=== PATIENT | male | born 1950 | race Caucasian/White ===

== ENCOUNTER 2019-09-17 15:26 | Outpatient (CLI) | payer MEDICARE, OTHER, SELFPAY ==
--- NOTE | ~2019-09-17 | XR_ITS ---
EXAMINATION: XR lumbar spine 2-3V DATE: 09/17/2019 16:08 INDICATION: Low back and right hip pain TECHNIQUE: Anteroposterior and lateral views of the lumbar spine, and cone-down lateral view of the l umbosacral junction were obtained. COMPARISON: None. FINDINGS: Alignment of the lumbar spine is normal. There appears be a chronic nonunited fracture of the coccyx with smooth corticated margins and mild posterior displacement. Vertebral body heights are normal. Mi ld disc height loss at L1-L2. Small to moderate-sized endplate osteophytes at multiple levels. Multil evel mild lumbar facet osteoarthritis. IMPRESSION: 1. Mild lumbar spondylosis. 2. 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 Reviewed, dictated and finalized at location A. IMPRESSION: 1. Mild lumbar spondylosis. 2. 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
--- NOTE | ~2019-09-17 | XR_ITS ---
EXAMINATION: XR hip RT min 3V w AP pelvis DATE: 09/17/2019 16:09 INDICATION: Right hip pain TECHNIQUE: Anteroposterior view of the pelvis and anteroposterior, frog leg and cross-table lateral v iews of the right hip were obtained. COMPARISON: 01/23/2010 FINDINGS: Alignment is normal. No fracture or suspected avascular necrosis. Bilateral decreased anterosuperior femoral head/neck offset. Again seen are large marginal osteophytes about both acetabula. There has b een interval progression of during of the space between the osteophytes at the superolateral acetabul um and the cortex of the femoral heads now moderate to severe on the right and moderate on the left c onsistent with progressive cartilage loss at the femoral heads. The joint space between the femoral h samir and the articular surface of the bilateral acetabula remains relatively preserved. Mild lower azul mbar spondylosis. IMPRESSION: 1. Chronic marked hypertrophic changes along the margins of both the left and right acetabula which m ay be related to chronic labral degeneration. 2. Progression of narrowing of the space between the hypertrophic osteophytes and the superolateral m argin of the bilateral femoral heads consistent with progressive femoral chondromalacia. Reviewed, dictated and finalized at location A. IMPRESSION: 1. Chronic marked hypertrophic changes along the margins of both the left and r ight acetabula which may be related to chronic labral degeneration. 2. Progression of narrowing of the space between the hypertrophic osteophytes a nd the superolateral margin of the bilateral femoral heads consistent with prog ressive femoral chondromalacia.
== END 2019-09-17 15:27 | disposition home or self-care (01) ==
LOC: ANHIMG 15:33
PROVIDERS: PCP Family Medicine; Visit Provider Physician Assistant
DX: M25.559 Pain in unspecified hip (principal); M47.896 Other spondylosis, lumbar region
CPT/HCPCS: 72100; 73502

== ENCOUNTER 2020-06-13 11:45 | Outpatient (CLI) | payer MEDICARE, OTHER, SELFPAY | END 2020-06-13 11:46 | disposition home or self-care (01) | LOC: ANHCOVIDVC 11:45 | PROVIDERS: PCP Family Medicine | DX: Z23 Encounter for immunization (principal) | CPT/HCPCS: 0001A; 91300 ==

== ENCOUNTER 2020-07-04 11:44 | Outpatient (CLI) | payer MEDICARE, OTHER, SELFPAY | END 2020-07-04 11:45 | disposition home or self-care (01) | LOC: ANHCOVIDVC 11:44 | PROVIDERS: PCP Family Medicine | DX: Z23 Encounter for immunization (principal) | CPT/HCPCS: 0002A; 91300 ==

== ENCOUNTER → 2021-06-15 08:41 | Outpatient (CLI) | payer MEDICARE, SELFPAY ==
--- NOTE | ~2021-06-15 | CT_ITS ---
EXAMINATION: CT lung screening DATE: 06/15/2021 09:02 INDICATION: Personal history of nicotine dependence TECHNIQUE: Computed tomography (CT) of the chest was performed without intravenous contrast. The dose -length product was 329.70 mGy-cm. Automated exposure control and iterative reconstruction technique were employed. COMPARISON: CT dated 05/13/2018 FINDINGS: No significant pleural or pericardial effusion. No thoracic lymphadenopathy. There is ather osclerosis of the aorta and coronary arteries. Small hiatal hernia. There is a small low-density lesi on right adrenal gland, unchanged, likely benign adenoma. There is moderate-severe emphysema. Calcifi ed granuloma right upper lobe. No endobronchial lesions. There are surgical changes in the right apex . There are a few small nodules measuring 3 mm or less. There are stable fissural nodules on the righ t. No pneumothorax. There is dependent atelectasis. No focal airspace consolidation. Mild thoracic sp ondylosis. Stable right lower paratracheal lymph node, likely reactive. 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 IMPRESSION: 1. Lung-RADS category 2: Benign appearance or behavior. Continue annual screening with noncontrast lo w-dose chest CT in 12 months. Reviewed, dictated and finalized at location B. IMPRESSION: 1. Lung-RADS category 2: Benign appearance or behavior. Continue annual screeni ng with noncontrast low-dose chest CT in 12 months.
== END ==
PROVIDERS: PCP Family Medicine; Visit Provider Physician Assistant
DX: Z12.2 Encounter for screening for malignant neoplasm of respiratory organs (principal); Z87.891 Personal history of nicotine dependence
CPT/HCPCS: 71271

== ENCOUNTER → 2022-07-05 11:20 | Outpatient (CLI) | payer MEDICARE, SELFPAY ==
--- NOTE | ~2022-07-05 | CT_ITS ---
EXAMINATION: CT lung screening DATE: 07/05/2022 11:36 INDICATION: Personal history of nicotine dependence, prior smoker with 80 pack year history TECHNIQUE: Computed tomography (CT) of the chest was performed without intravenous contrast. The dose -length product (DLP) was 333.31 mGy-cm. Automated exposure control and iterative reconstruction tech [employer] were employed. COMPARISON: 06/15/2021 FINDINGS: There is moderate emphysema. A surgical staple line is noted in the right lung apex. Calcif ied pulmonary nodules and calcified right hilar lymph nodes are consistent with old granulomatous dis ease. There is a stable 2 mm nodule of the left upper lobe. No pathologically enlarged thoracic lymph nodes are identified. The heart size is normal. No pleural effusion or pneumothorax. Deformity of th e right sixth rib is consistent with old thoracotomy change. There are bridging osteophytes at multip le levels in the spine, consistent with diffuse idiopathic skeletal hyperostosis (DISH). A stable lisa noma of the right adrenal gland is again noted. IMPRESSION: 1. Lung-RADS category 2: Benign appearance or behavior. Continue annual screening with noncontrast lo w-dose chest CT in 12 months. Reviewed, dictated and finalized at location L. IMPRESSION: 1. Lung-RADS category 2: Benign appearance or behavior. Continue annual screeni ng with noncontrast low-dose chest CT in 12 months.
== END ==
PROVIDERS: PCP Physician Assistant; Visit Provider Physician Assistant
DX: Z12.2 Encounter for screening for malignant neoplasm of respiratory organs (principal); Z87.891 Personal history of nicotine dependence
CPT/HCPCS: 71271

== ENCOUNTER 2022-11-02 12:20 | Outpatient (CLI) | payer MEDICARE, SELFPAY ==
--- NOTE | 2022-11-05 10:42 | WPDPFTINT ---
PFT Procedure Performed PFT Procedure Performed Plethysmography (Lung Vol) Diffusing Cap (DLCO) Spirometry w/o Bronchodil PFT Interpretation DOS: 11/02/2022 REQUESTING: Fletcher Mullen PA-C REASON FOR TESTING: Shortness of breath PULMONARY FUNCTION TESTS Results are reliable and reproducible. Spirometry: FEV1 is 1.87 L, 60%, decreased. FVC is 3.30 L, 81%, low end of normal. FEV1 / FVC ratio is 57%, decreased, indicates airflow obstruction. No bronchodilator was given. Lung volumes: Total lung capacity 4.15 L, 61%, decreased consistent with restriction. Residual volume is 0.85 L, 36% severely decreased. RV/TLC is 21, below the lower limit of normal. Diffusion: DLCO is 14.8, 57%, moderately reduced. DLCO/VA is 3.54, 89%, normal. Flow volume loop: There is mild coving of the expiratory limb. The inspiratory limb has a nonspecific attenuation in the first portion. IMPRESSION: This study shows combined moderate restriction and moderate obstruction with a moderate diffusion impairment which corrects for alveolar volume. This may reflect overlapping conditions such as emphysema and interstitial lung disease, for example. There are no prior studies for comparison. No bronchodilator was given. Chest CT shows a surgical staple line in the right upper lobe. Loss of lung parenchyma may contribute to his restrictive impairment. Keyona Nova MD
== END 2022-11-02 12:21 | disposition home or self-care (01) ==
PROVIDERS: PCP Emergency Medicine; Visit Provider Physician Assistant
DX: R06.02 Shortness of breath (principal); R94.2 Abnormal results of pulmonary function studies
CPT/HCPCS: 94375; 94726; 94729

== ENCOUNTER 2022-11-05 08:04 | Outpatient (CLI) | payer MEDICARE, SELFPAY ==
--- NOTE | ~2022-11-05 | NM_ITS ---
EXAMINATION: NM henry stress w perfusion DATE: 11/05/2022 10:50 INDICATION: Dyspnea on exertion. TECHNIQUE: Rest images were obtained following intravenous administration of 10.2 mCi Tc99m tetrofosm in (Myoview). The patient was infused intravenously with Lexiscan (regadenoson). Then, 32.7 mCi Tc99m tetrofosmin (Myoview) was administered intravenously, and stress images were obtained. Data was gely nstructed into short axis and horizontal and vertical long axis SPECT images. Gated SPECT images were also obtained. COMPARISON: None. FINDINGS: There is a small, mild, fixed perfusion defect involving apical to mid inferior wall of lef t ventricle, consistent with infarct. No reversible component to suggest ischemia.. There is no segm ental wall motion abnormality. Left ventricular ejection fraction measures 69%. IMPRESSION: 1. 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 2. Normal left ventricular ejection fraction measuring 69%. Reviewed, dictated and finalized at location A. IMPRESSION: 1. Small area of mild infarct involving apical to mid inferior wall of left samia tricle. 2. Normal left ventricular ejection fraction measuring 69%.
--- NOTE | 2022-11-05 08:50 | EST_ITS ---
Patient Info Name: Alfonso Perez Age: 72 years : 1950 Gender: Male Ht: 70 in Wt: 285 lbs BSA: 2.58 m2 HR: 62 bpm BP: 138 / 62 mmHg Heart Rhythm: Sinus Rhythm Exam Date: 11/05/2022 9:30 AM Exam Location: [facility] Stress Patient Status: Outpatient Admit Date: 11/05/2022 Staff Ordering Physician: Fletcher Mullen PA-C Attending Provider: Fletcher Mullen PA-C Exercise Technologist: Terrie Grissom CT Exercise Physician: Andre Ramos DO Exam Type: CA stress henry w NM Study Info Indications R06.02 - Shortness of breath A regadenoson stress test was performed. Summary 1. 1. Negative lexiscan stress test for ischemic ST changes by ECG criteria. 2. 2. Stable hemodynamics throughout the test. 3. 3. Nuclear scan to follow and will be reported separately. Please correlate with it. 4. 4. Patient informed of the above results. Protocol: Lexiscan Stress ECG Details Stage: REST Duration (min): 1 min : 1 sec HR (bpm): 64 SBP (mmHg): 138 DBP (mmHg): 62 Stage: REST Duration (min): 12 min : 31 sec HR (bpm): 60 SBP (mmHg): 138 DBP (mmHg): 62 Stage: STAGE 1 Duration (min): 1 min : 0 sec HR (bpm): 72 SBP (mmHg): 140 DBP (mmHg): 79 Stage: RECOVERY Duration (min): 1 min : 0 sec HR (bpm): 73 SBP (mmHg): 140 DBP (mmHg): 79 Stage: RECOVERY Duration (min): 2 min : 0 sec HR (bpm): 72 SBP (mmHg): 140 DBP (mmHg): 79 Stage: RECOVERY Duration (min): 3 min : 0 sec HR (bpm): 70 SBP (mmHg): 142 DBP (mmHg): 76 Stage: RECOVERY Duration (min): 3 min : 15 sec HR (bpm): 67 SBP (mmHg): 142 DBP (mmHg): 76 Rest HR: 60 bpm Peak HR: 82 bpm Rest Sys BP: 138 mmHg Peak Sys BP: 142 mmHg Max Pred HR: 150 bpm % Max Pred HR: 55 % Target HR: 128 bpm Max RPP: 11,644 bpm*mmHg Termination Reason: Completed protocol Cardiac Symptoms: Shortness of breath Total Time: 1 min : 0 sec Rest Slater BP: 62 mmHg Peak Slater BP: 76 mmHg Total Dose: 0.4 mg Resting ECG Sinus rhythm. Stress ECG No ST changes. Arrhythmias None. Report Signatures
--- NOTE | 2022-11-05 08:50 | ECHO_ITS ---
Patient Info Name: Alfonso Perez Age: 72 years : 1950 Gender: Male Ht: 70 in Wt: 285 lbs BSA: 2.58 m2 HR: 57 bpm BP: 148 / 77 mmHg Technical Quality: Fair Exam Date: 11/05/2022 11:09 AM Exam Location: [facility] Patient Status: Outpatient Admit Date: 11/05/2022 Staff Ordering Physician: Fletcher Mullen PA-C Pattern Illustrator: Radha Alston RDCS Attending Provider: Fletcher Mullen PA-C Referring Physician: Sebas REID; Exam Type: CA echo dop bubble study w con Study Info Indications - SHORTNESS OF BREATH Complete two-dimentional, color flow and Doppler transthoracic echocardiogram is performed with agitated saline and with contrast to opacify the left ventricle and to improve the delineation of the left ventricle endocardial borders. Contrast/Agitated Saline Contrast/Ag. Saline: Definity Amount: 2.00 ml Administered By: Radha Alston [facility] Existing IV Access: No New IV Access: Left Site Condition: IV removed Summary 1. Left ventricular chamber dimension is mildly enlarged. 2. Left ventricular systolic function is normal, estimated at 60-65%. 3. There is mild concentric increased left ventricular wall thickness. 4. The left ventricular diastolic function is grade I diastolic dysfunction. 5. E/e' 11 is mildly elevated. 6. There is mild aortic valve sclerosis. 7. There is mild to moderate aortic valve regurgitation. 8. There is trace mitral valve regurgitation. 9. There is trace tricuspid valve regurgitation. 10. No pulmonary hypertension, estimated pulmonary arterial systolic pressure is 35 mmHg. Left Ventricle E/e' 11 is mildly elevated. Left ventricular chamber dimension is mildly enlarged. Left ventricular systolic function is normal, estimated at 60-65%. There is mild concentric increased left ventricular wall thickness. The left ventricular diastolic function is grade I diastolic dysfunction. Right Ventricle Right ventricular chamber dimension is normal. Right ventricular systolic function is normal. Left Atria Left atrial chamber dimension is normal. Right Atria Right atrial chamber dimension is normal. Atrial Septum Agitated saline injection with and without valsalva maneuver opacified right side cardiac chambers without shunt to left side cardiac chambers. Intact interatrial septum visualized by 2D and agitated saline imaging. Aortic Valve The aortic valve is trileaflet. There is mild aortic valve sclerosis. There is no aortic valve stenosis. There is mild to moderate aortic valve regurgitation. Pulmonic Valve There is no pulmonic regurgitation. Mitral Valve There is no mitral valve stenosis. There is trace mitral valve regurgitation. Tricuspid Valve There is trace tricuspid valve regurgitation. No pulmonary hypertension, estimated pulmonary arterial systolic pressure is 35 mmHg. Pericardium/Pleural There is no pericardial effusion. Inferior Vena Cava Normal inferior vena cava with >50% collapse upon inspiration consistent with normal right atrial pressure, 5 mmHg. Aorta The aortic root size at the sinus of Valsalva is normal. Left Ventricular Outflow Tract Name Value Normal LVOT 2D LVOT Diameter 2.2 cm LVOT Doppler
[2022-11-05] MEDS: PERFLUTREN LIPID MICROSPHERES 1.5 ML VIAL DILUTED TO 10 ML TOTAL VOLUME IV PUSH (11:40)
== END 2022-11-05 08:05 | disposition home or self-care (01) ==
PROVIDERS: PCP Emergency Medicine; Visit Provider Physician Assistant
DX: R06.02 Shortness of breath (principal); I34.0 Nonrheumatic mitral (valve) insufficiency; I35.1 Nonrheumatic aortic (valve) insufficiency; I36.1 Nonrheumatic tricuspid (valve) insufficiency
CPT/HCPCS: 78452; 93017; 96375; A9502; C8929; J2785; Q9957

== ENCOUNTER 2022-12-25 16:24 | Outpatient (CLI) | payer MEDICARE, SELFPAY ==
[2022-12-25 17:03] LABS: Appearance Urine Turbid (Clear); Bacteria Urine 1+ /hpf; Bilirubin Urine Negative (Negative); Blood Urine 3+ (Negative); Color Urine Yellow (Yellow); Glucose Urine UA Negative (Negative); Ketones Urine Negative (Negative); Leukocyte Esterase Ur 3+ LEU/UL (Negative); Nitrate Urine Negative (Negative); Non Pathogenic Casts 0-2; Protein Urine 2+ mg/dL (Negative); RBC Urine >100 /hpf (0-2); Specific Grav Ur 1.014 (1.001-1.035); Squamous Epithelial Cell Urine None seen /hpf (Few); Urobilinogen Urine 0.2 mg/dL (<2.0); WBC Urine >100 /hpf; pH Urine 5.5 (5.0-9.0)
[2022-12-25 17:28] LABS: Add Urine Microscopic? YES
== END 2022-12-25 16:25 | disposition home or self-care (01) ==
LOC: ANHLAB 16:25
PROVIDERS: PCP Emergency Medicine; Visit Provider Emergency Medicine
DX: N39.0 Urinary tract infection, site not specified (principal)
CPT/HCPCS: 81001; 87077; 87086; 87186

== ENCOUNTER 2022-12-27 08:42 | Outpatient (CLI) | payer MEDICARE, SELFPAY ==
--- NOTE | 2022-12-27 12:29 | WPDPFTINT ---
PFT Procedure Performed PFT Procedure Performed Spirometry with Pre/Post Bronchodilator Flow Vol Loop PFT Interpretation This is a pulmonary function test with pre and post-bronchodilator spirometry, plethysmography and diffusing capacity. The test was performed and results interpreted in accordance with the 2019 and 2005 ATS/ERS Task Force guidelines respectively using the Global Lung Function Initiative-2012 reference equations. Patient demonstrated good effort and cooperation. Reproducibility criteria were met. The quality of the pre bronchodilator spirometry maneuver was Grade A and post bronchodilator spirometry maneuver was Grade A. Findings: Spirometry: There is decreased maximal expiratory airflow at all lung volumes with concave expiratory flow tracing. The contour the inspiratory flow tracing is normal. The pre bronchodilator FVC is 3.24 L, 79% predicted. The pre bronchodilator FEV1 is 1.86 L, 60% predicted. The pre bronchodilator FEV1: FVC ratio is 58%. The post bronchodilator FVC is 3.36 L, representing a 4% increase. The post bronchodilator FEV1 is 1.98 L, representing a 6% increase. The post bronchodilator FEV1: FVC ratio is 59%. In comparison to previous spirometry performed on 11/02/2022 in which only pre bronchodilator spirometry was performed the pre bronchodilator FVC is unchanged from 3.30 L to 3.24 L. The pre bronchodilator FEV1 is unchanged from 1.87 L to 1.86 L. Impression: There is a moderate obstructive abnormality without significant improvement after inhaling a single dose of albuterol. In comparison to previous spirometry performed on 11/02 2022 there has been no significant change in the pre bronchodilator FVC or FEV1. Clinical correlation is recommended.
--- NOTE | 2022-12-27 12:31 | WPDSIXMINUTE ---
Six Minute Walk Procedure Procedure Performed Pulmonary Stress Test (6 min walk) Six Minute Walk Six Minute Walk: This is a 6 minute walk test. The test was performed and interpreted in accordance with the 2014 ERS/ATS task force guidelines. Findings: The patient's resting room air oxygen saturation measured by pulse oximetry was 95% and heart rate was 62 bpm. Patient ambulated for 274 meters and oxygen saturation remained 90 to 91%. Heart rate at the end of the study was 97 bpm. The patient did not qualify for supplemental oxygen at rest or with ambulation. There are no prior studies for comparison.
== END 2022-12-27 08:43 | disposition home or self-care (01) ==
PROVIDERS: PCP Emergency Medicine; Visit Provider Internal Medicine Pulmonary Disease
DX: R06.02 Shortness of breath (principal); J44.9 Chronic obstructive pulmonary disease, unspecified; Z87.891 Personal history of nicotine dependence; R94.2 Abnormal results of pulmonary function studies
CPT/HCPCS: 94060; 94618

== ENCOUNTER 2023-04-30 14:07 | Emergency (ER) | payer MEDICARE, SELFPAY ==
--- NOTE | 2023-04-30 14:10 | ED.MALEGU ---
HPI - Male Genitourinary General Chief complaint: Urogenital-Male Stated complaint: Uti symptoms Time Seen by Provider: 04/30/23 14:09 Source: patient Mode of arrival: ambulatory Limitations: no limitations History of Present Illness HPI Narrative: Alfonso is a 72-year-old male patient presenting to the clinic today with complaints of possible urinary tract infection. He reports he is having some burning and frequency with urination. Has had the symptoms for few days now. Has attempted to get in with his urologist but does not have an appointment for 2 weeks. States he wants to get a ?handle on this?. He denies any fever or chills. Denies any abdominal pain or flank pain. Is seen and doctor Geovani with [facility] Related Data Home Medications Medication Instructions Recorded Confirmed aspirin 81 mg chewable tablet 81 mg PO DAILY 11/08/22 04/30/23 Allergies Allergy/AdvReac Type Severity Reaction Status Date / Time alcohol AdvReac Unknown RECOVERED Verified 04/30/23 14:36 ALCOHOLIC DRUG USER, NONE FOR 31 YRS Review of Systems Review of Systems: Pertinent positives per HPI. Patient denies any fever, chills, rash, headache, visual changes, dizziness, cough, runny nose, sore throat, shortness of breath, chest pain, palpitations, nausea, vomiting, diarrhea, constipation, abdominal pain. [facility] Past Medical History Medical History Bilateral hip joint arthritis Collapsed lung COPD (chronic obstructive pulmonary disease) Hypertension Liver disease Morbid obesity Family History Family History Father Diabetes mellitus Mother Patient's mother is Social History Social History Social History: Caffeine- coffee Smoking status: Former smoker Alcohol intake: never Alcohol use details: RECOVERING ADDICT Substance use: never Lack of Transportation: No Lack of Food: Never True Current Housing: I Have Housing Concerned About Future Housing: No Difficulty Paying Gas/Electric Bills: No Difficulty Paying for Meds: No Currently Unemployed: No Education: High School Diploma/GED Difficulty w/ Childcare or Family Care: No Living arrangements: with family Occupation/Education: retired Comments At the time of my signature, I reviewed and agree with the nursing past medical, surgical, social, and family history. There is no relevant family history pertinent to the patient complaint. Exam Narrative: General: Well-developed, obese, in no apparent distress. Head: Normocephalic, atraumatic. Cardio: Regular rate and rhythm, s1 and s2 normal, no murmur appreciated. Resp: Clear to auscultation bilaterally, no rhonchi, rales, wheezing or rubs. Abdomen: Soft, pliable, bowel sounds present in all quadrants, non-tender to palpation, no organomegly, no CVAT tenderness. Course Course Emergency Course: Portions of this record may have been created with voice recognition software. Level of Care: Express Care Visit Vital Signs Vital signs: Vital signs reviewed MDM - Male Genitourinary MDM Narrative Medical decision making narrative: At the time of visit patient is resting comfortably on the exam table. Patient appears to be nontoxic. Labs: UA positive for 3+ leukocytes, 1+ protein, and 1+ blood. We will send urine for culture. Plan: Will place the patient on Bactrim. Will have him follow-up with his urologist as scheduled. Supportive measures were discussed with the patient and they voiced understanding discharge instructions and agrees to treatment plan. Return precautions reviewed Differential Diagnosis Differential diagnosis: Likely urinary tract infection, urethritis, prostatitis, acute retention of urine and other Discharge Plan Discharge Clinical Im
[2023-04-30 14:13] VITALS: BP 136/58; PULSE 61; RESP 16; TEMP 36.4; O2SAT 98
== END 2023-04-30 14:37 | disposition home or self-care (01) ==
PROVIDERS: Emergency Provider Nurse Practitioner Family; PCP Internal Medicine
DX: N30.01 Acute cystitis with hematuria (principal); B96.4 Proteus (mirabilis) (morganii) as the cause of diseases classified elsewhere; M16.0 Bilateral primary osteoarthritis of hip; J44.9 Chronic obstructive pulmonary disease, unspecified; I10 Essential (primary) hypertension; E66.01 Morbid (severe) obesity due to excess calories; Z68.41 Body mass index [BMI] 40.0-44.9, adult; Z87.891 Personal history of nicotine dependence; Z79.82 Long term (current) use of aspirin
CPT/HCPCS: 81003; 87077; 87086; 87186; 99213; G0463

== ENCOUNTER 2023-07-09 13:15 | Outpatient (CLI) | payer MEDICARE, SELFPAY ==
--- NOTE | ~2023-07-09 | CT_ITS ---
EXAMINATION: CT lung screening DATE: 07/09/2023 13:28 INDICATION: Personal history of nicotine dependence TECHNIQUE: Computed tomography (CT) of the chest was performed without intravenous contrast. The dose -length product was 349.69 mGy-cm. Automated exposure control and iterative reconstruction technique were employed. COMPARISON: CT dated 07/05/2022 FINDINGS: There is evidence of chronic granulomatous disease in the right lung and mediastinum. No si gnificant pleural or pericardial effusion. Heart size normal. No thoracic lymphadenopathy. There is a therosclerosis of the aorta and coronary arteries. There is a small right adrenal adenoma. There is c alcified granuloma left upper lobe. There is right basilar atelectasis/scarring. There is emphysema. There is right apical pleural thickening/scarring. There is right pleural thickening. There are few s mall 1-2 mm upper lobe nodules, likely benign. Moderate thoracic spondylosis. No focal lytic or blast ic lesions. No acute osseous abnormality. There are multiple healed/healing right lower rib fractures . IMPRESSION: 1. . Lung-RADS category 2: Benign appearance or behavior. Continue annual screening with noncontrast low-dose chest CT in 12 months. Reviewed, dictated and finalized at location A. IMPRESSION: 1. . Lung-RADS category 2: Benign appearance or behavior. Continue annual scree julius with noncontrast low-dose chest CT in 12 months.
== END 2023-07-09 13:16 ==
LOC: MICIMG 13:16
PROVIDERS: PCP Physician Assistant; Visit Provider Physician Assistant
DX: Z12.2 Encounter for screening for malignant neoplasm of respiratory organs (principal); Z87.891 Personal history of nicotine dependence
CPT/HCPCS: 71271

== ENCOUNTER 2023-10-28 14:32 | Outpatient (CLI) | payer MEDICARE, SELFPAY ==
[2023-10-28 19:15] LABS: Hemoglobin A1C 6.5 % (<5.7)
[2023-10-28 19:52] LABS: Prostate Specific Antigen 4.7 ng/mL (< OR = 4.0)
== END 2023-10-28 14:33 | disposition home or self-care (01) ==
LOC: ANHGOSHLAB 14:34
PROVIDERS: PCP Physician Assistant; Visit Provider Internal Medicine
DX: R73.03 Prediabetes (principal); Z12.5 Encounter for screening for malignant neoplasm of prostate
CPT/HCPCS: 36415; 83036; 84153; G0103

== ENCOUNTER 2023-11-18 13:23 | Outpatient (CLI) | payer MEDICARE, SELFPAY ==
[2023-11-18 20:23] LABS: Kit Draw Collected
== END 2023-11-18 13:24 | disposition home or self-care (01) ==
LOC: ANHGOSHLAB 13:25
PROVIDERS: PCP Physician Assistant; Visit Provider Internal Medicine
DX: R73.03 Prediabetes (principal); Z12.5 Encounter for screening for malignant neoplasm of prostate
CPT/HCPCS: 36415

== ENCOUNTER 2024-05-28 13:30 | Outpatient (CLI) | payer MEDICARE, SELFPAY ==
[2024-05-28 15:59] LABS: Prostate Specific Antigen 5.9 ng/mL (< OR = 4.0)
== END 2024-05-28 13:31 | disposition home or self-care (01) ==
LOC: ANHGOSHLAB 13:31
PROVIDERS: PCP Internal Medicine; Visit Provider Internal Medicine
DX: R97.20 Elevated prostate specific antigen [PSA] (principal)
CPT/HCPCS: 36415; 84153

== ENCOUNTER 2024-11-20 13:14 | Outpatient (CLI) | payer MEDICARE, SELFPAY ==
--- OUTSIDE RECORDS SUMMARY | 2024-11-20 13:18 | XMS_ITS | Clinical Summary ---
Author Organization [facility] Address [address] [place] [address] [address] Prov[address] Care [address] Mechanic Name Role Phone Ry Funez DO Primary Care Provider [phone] Source Comments [facility] [employer],non-owned Affiliates and Associated Physician Practices is amultiple site organization consisting of ambulatory clinics and hospital sitesin [place], [place], [place] and [place]. This disclosure is being madepursuant to the Care Everywhere program and may not contain all information available regarding this patient. Last updated 17.[facility] [employer] Allergies No known active allergies Medications * Be aware that medications may not be up to date on this document. Alwaysverify current medications with the patient. atorvastatin (Lipitor) 20 MG tablet Active losartan-hydroC HLOROthiazide (Hyzaar) 100-12.5 MG tablet Take 1 (one) tablet by mouth once daily 12/13/2023 Active tamsulosin (Flomax) 0.4 MG capsule Take 1 (one) capsule by mouth at bedtime 11/26/2023 Active aspirin EC (Aspir-Low) 81 MG tablet Active Turmeric (QC TUMERIC COMPLEX PO) Active Social History Tobacco Use Types Packs/Day Years Used Date Smoking Tobacco: Never Smokeless Tobacco: Never Tobacco Cessation:Counseling Given: Not Answered Alcohol Use Standard Drinks/Week Comments Never 0 (1 standard drink = 0.6 oz pur e alcohol) Sex and Gender Information Value Date Recorded Sex Assigned at Not on file Legal Sex Male 4:21 PM CDT Gender Identity Not on file Sexual Orientation Not on file Last Filed Vital Signs Vital Sign Reading Time Taken Comments Blood Pressure 131/73 06/10/2024 2:04 PM CDT Pulse 64 06/10/2024 2:01 PM CDT Temperature 36.7 C (98.1 F) 06/10/2024 2:01 PM CDT Respiratory Rate 19 06/10/2024 2:01 PM CDT Oxygen Saturation 94% 06/10/2024 2:01 PM CDT Inhaled Oxygen Concentration - - Weight 132.9 kg (293 lb) 06/10/2024 2:01 PM CDT Height 175.3 cm (5' 9) 06/10/2024 2:01 PM CDT Body Mass Index 43.27 06/10/2024 2:01 PM CDT Plan of Treatment Upcoming Encounters Date Type Department Care Team (Late st Contact Info) Description 01/13/2025 1:45 PM CDT Office Visit [facility] - Urology [address] [place] [address] Alexus Hitchcock, [employer]-[facility] [address] DEPT [place] [address] Health Maintenance Due Date Last Done Comments COLOGUARD (AGES 45-75) - COL ON CA SCREENING 1952 COLON MONITORING 1952 COLONOSCOPY - COLON CA SCREENING 1952 CT COLONOGRAPHY - COLON CA SCREENING 1952 Colorectal Cancer Screening 1952 FIT - COLON CA SCREENING 1952 FLEX SIG - COLON CA SCREENING 1952 HEPATITIS C SCREENING 09/23/1970 DTAP/TDAP/TD VACCINES (1 - Tdap) 09/28/1971 PNEUMOCOCCAL VACCINE 50+ (1 of 1 - PCV) 2002 ZOSTER VACCINE (1 of 2) 2002 Respiratory Syncytial Virus (RSV) Vaccine Pt: or over 60 yrs (1 - Risk 60-74 years 1-dose series) 2012 COVID-19 VACCINE (1 - 2023-2 5 season) 2023 DEPRESSION SCREENING 04/01/2024 MEDICARE AWV CALENDAR YEAR 2024 INFLUENZA VACCINE (#1) 2024 HEPATITIS B VACCINE Aged Out No longe r eligible based on patient's age to complete this topic HIB VACCINE Aged Out No longer eligi ble based on patient's age to complete this topic HPV VACCINE Aged Out No longer eligi ble based on patient's age to complete this topic MENINGOCOCCAL (Group B) VACC INE SHARED DECISION-MAKING Aged Out No longer eligibl e based on patient's age to complete this topic MENINGOCOCCAL GROUPS A/C/Y/W VACCINE Aged Out No longer eligible b ased on patient's age to complete this [place] [address] [employer] MEDICARE ADV Care Teams 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
== END 2024-11-20 13:15 | disposition home or self-care (01) ==
LOC: ANHAUDASC 13:16
PROVIDERS: PCP Internal Medicine; Visit Provider Internal Medicine
DX: E11.9 Type 2 diabetes mellitus without complications (principal); I10 Essential (primary) hypertension; E66.01 Morbid (severe) obesity due to excess calories; H93.19 Tinnitus, unspecified ear; Z86.19 Personal history of other infectious and parasitic diseases; J44.9 Chronic obstructive pulmonary disease, unspecified; H90.3 Sensorineural hearing loss, bilateral
CPT/HCPCS: 92557; 92567

== ENCOUNTER 2025-01-14 14:30 | Outpatient (RCR) | payer SELFPAY | END 2025-03-14 23:59 | disposition home or self-care (01) | LOC: ANHAUDASC 14:30 | PROVIDERS: PCP Internal Medicine; Visit Provider Internal Medicine | DX: Z46.1 Encounter for fitting and adjustment of hearing aid (principal) | CPT/HCPCS: 99199; V5261 ==

== ENCOUNTER 2025-02-18 14:30 | Outpatient (CLI) | payer MEDICARE, SELFPAY ==
--- NOTE | ~2025-02-18 | CT_ITS ---
EXAMINATION:CT lung screening DATE: 02/18/2025 14:50 INDICATION: Ex-smoker. Follow-up lung cancer screening TECHNIQUE: Computed tomography (CT) of the chest was performed without intravenous contrast. Automated exposure control and iterative reconstruction technique were employed. The dose-length product (DLP) was 324.19 mGy-cm. COMPARISON: Previous screening exam dated 07/19/2023 FINDINGS: Significant emphysematous changes of lungs with large subpleural bulla right lung base similar to prior study. Appearance of noncalcified solid nodule within the left lower lobe superior segment, on image 68 of lung windows CDs. This density measures 10 mm in axial dimension. Mildly irregular margins of this lesion. No pleural or pericardial effusion. IMPRESSION: 1. Severe emphysematous changes of lungs similar to prior studies. 2. Appearance of irregular peripheral subpleural noncalcified nodule in the superior segment of left lower lobe measuring 10 mm in diameter as described above are not seen on previous cancer screening CT examination. Follow-up evaluation with PET/CT is recommended. Lung RADS category 4 Reviewed, dictated and finalized at location T. ER AT ARMS IMPRESSION: 1. Severe emphysematous changes of lungs similar to prior studies. 2. Appearance of irregular peripheral subpleural noncalcified nodule in the sup erior segment of left lower lobe measuring 10 mm in diameter as described above are not seen on previous cancer screening CT examination. Follow-up evaluation with PET/CT is recommended. Lung RADS category 4
== END 2025-02-18 14:31 | disposition home or self-care (01) ==
LOC: MICIMG 14:31
PROVIDERS: PCP Internal Medicine; Visit Provider Nurse Practitioner Family
DX: Z12.2 Encounter for screening for malignant neoplasm of respiratory organs (principal); Z87.891 Personal history of nicotine dependence
CPT/HCPCS: 71271

== ENCOUNTER 2025-03-30 11:45 | Outpatient (CLI) | payer MEDICARE, SELFPAY ==
--- NOTE | ~2025-03-30 | PE_ITS ---
EXAMINATION: PET skull to mid thigh DATE: 03/30/2025 14:10 INDICATION: Solitary pulmonary nodule. TECHNIQUE: Blood glucose level was 115 mg/dL. 9.843 mCi of 18-fluorodeoxyglucose (18-FDG) was administered i.v. Low dose computed tomography (CT) images were acquired from the base of the brain to the proximal thighs for attenuation correction and anatomic localization. Automated exposure control was employed. Dose-length product (DLP) was 1325 mGy-cm. Positron emission tomography (PET) images were acquired in the same distribution. COMPARISON: Chest CT 02/18/25 FINDINGS: Head/neck: There are no pathologically enlarged lymph nodes. Chest: There is severe emphysema. There is a staple line in right lung upper lobe. A calcified right lung nodule and calcified right hilar and mediastinal lymph nodes are consistent with old granulomatous disease. There are hyperdensities at the right-sided pleura, which may be changes of talc pleurode sis. There is mild atelectasis bilaterally. No pleural effusion. The heart size is normal. No pericardial effusion. Abdomen/pelvis/proximal thighs: The liver, gallbladder, spleen, pancreas, adrenal glands and left adrenal gland are normal. There is a 15 mm mass in right adrenal gland measuring low attenuation, consistent with an adenoma. The kidneys are normal. There are no dilated loops of bowel. The prostate is severely enlarged. There are no pathologically enlarged lymph nodes. There is no free intraperitoneal fluid. There is no osseous malignancy. IMPRESSION: 1. No evidence of malignancy. 2. Severe emphysema. Reviewed, dictated and finalized at location E. HER REPORTER
== END 2025-03-30 11:46 | disposition home or self-care (01) ==
PROVIDERS: PCP Internal Medicine; Visit Provider Nurse Practitioner Family
DX: J43.9 Emphysema, unspecified (principal); R91.1 Solitary pulmonary nodule
CPT/HCPCS: 78815; A9552